=== PATIENT | female | born 1985 | race Caucasian/White ===

== ENCOUNTER 2018-06-19 08:26 | Emergency (ER) | payer BC, OTHER ==
[2018-06-19] MEDS: KETOROLAC 30 MG INJ IM (09:18)
[2018-06-19 09:30] LABS: ADD UMIC YES; UR ASCORBIC ACID NEGATIVE (NEGATIVE); UR BILIRUBIN (Dip) NEGATIVE (NEGATIVE); UR BLOOD (Dip) 1+ mg/dL (NEGATIVE); UR CLARITY SLIGHTLY CLOUDY (CLEAR); UR COLOR YELLOW (YELLOW); UR GLUCOSE (Dip) NEGATIVE (NEGATIVE); UR KETONES (Dip) NEGATIVE (NEGATIVE); UR LEUKOCYTE ESTERASE (Dip) 3+ Leu/ul (NEGATIVE); UR MUCUS FEW /HPF (NONE SEEN); UR NITRITE (Dip) NEGATIVE (NEGATIVE); UR RBC 2 /HPF (0-5); UR SPECIFIC GRAVITY (Dip) 1.034 (1.003-1.030); UR TOTAL PROTEIN (Dip) 1+ mg/dl (NEGATIVE); UR UROBILINOGEN (Dip) NEGATIVE (NEGATIVE); UR WBC 36 /HPF (0-5)
== END 2018-06-19 10:15 | disposition home or self-care (01) ==
LOC: FTE 08:26
DX: M54.5 Low back pain (principal); J06.9 Acute upper respiratory infection, unspecified; N39.0 Urinary tract infection, site not specified; J45.909 Unspecified asthma, uncomplicated
CPT/HCPCS: 81001; 81025; 87086; 96372; 99284-25

== ENCOUNTER 2018-12-20 18:59 | Emergency (ER) | payer BC ==
[2018-12-20] MEDS: KETOROLAC 60 MG INJ IM (22:02)
== END 2018-12-20 22:25 | disposition home or self-care (01) ==
LOC: FTE 18:59
DX: M54.5 Low back pain (principal); J45.909 Unspecified asthma, uncomplicated
CPT/HCPCS: 81025; 96372; 99284-25

== ENCOUNTER 2019-02-08 10:13 | Emergency (ER) | payer BC | END 2019-02-08 13:32 | disposition home or self-care (01) | LOC: FTE 10:13 | DX: F41.9 Anxiety disorder, unspecified (principal); R60.0 Localized edema; J45.901 Unspecified asthma with (acute) exacerbation | CPT/HCPCS: 93005; 93971; 99284-25 ==